=== PATIENT | female | born 1990 | race Caucasian/White ===

== ENCOUNTER 2024-05-21 23:03 | Emergency (ER) | payer OTHER, SELFPAY ==
[2024-05-21 23:06] VITALS: BP 114/79
--- NOTE | 2024-05-22 00:12 | ED.GENMED ---
History of Present Illness
General
Chief Complaint: Skin Problem
Source: patient
Exam Limitations: none
Time Seen by Provider: 05/22/24 00:08
History of Present Illness
History of Present Illness:
33yo right hand dominant female presenting for evaluation of a left index finger injury that was sustained this afternoon. 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 She
was able to remove the nail entirely prior to arrival. She is presenting with some discomfort. No fevers or chills. Last tetanus was reportedly 6 years ago.
Phy Exam
General Physical Exam
General Presentation: well appearing and no apparent distress
General age: appears stated age
General Skin: warm and dry
General Habitus: normal
ENT Exam
ENT Exam: normocephalic
Musculoskeletal Exam
Musculoskeletal Exam: other (L index finger: There is a small puncture wound noted laterally that is already scabbed over. There is mild swelling and tenderness to the distal digit. DIP and PIP ROM normal. Cap refill intact.)
Skin Exam
Skin Exam: warm/dry
Psychiatric Exam
Psychiatric Exam: normal mood/affect
Course
Orders/Labs/Results
Orders:
Orders
05/21/24 23:20
Finger(s)/Thumb 2 View Lt [CR Finger(s)/thumb Min 2 Vw Lt] Urgent
Comment:
Reason For Exam: shot tip with a nail gun
Indicate Which Finger:: Index Finger
05/22/24 00:17
Clindamycin HCl [Cleocin] 300 mg PO NOW STA
Vital Signs
Initial and Last Documented VS:
Initial Vital Signs
Temp Pulse Resp BP Pulse Ox
98.0 F 86 14 114/79 100
05/21/24 23:06 05/21/24 23:06 05/21/24 23:06 05/21/24 23:06 05/21/24 23:06
Last Documented Vital Signs
Temp Pulse Resp BP Pulse Ox
98.0 F 86 14 114/79 100
05/21/24 23:06 05/21/24 23:06 05/21/24 23:06 05/21/24 23:06 05/21/24 23:06
MDM/Problems Addressed
Differential Diagnosis Includes:
33yoF here after a nail gun injury to her L index finger this afternoon. 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 Small puncture wound noted to distal finger with some tenderness. ROM normal. Digit is neurovascularly intact. Differential diagnosis includes: retained
foreign body, fracture
X-rays obtained which are negative for fracture and FB per my interpretation. Tetanus UTD. She was started on a course of clindamycin (anaphylactic allergy to PCN) for infection prophylaxis. Advised return to the ED with any signs of infection or
concerns. Patient in agreement with plan and was discharged in stable condition.
*Critical Care Note
Total Time (30-74mins, 75-104mins- exclusive of procedures): Not Applicable
ED Attending Note
-
Portions of this chart may have been created with voice recognition software.� Occasional wrong word or��sound alike� substitutions may have occurred due to the inherent limitations of voice recognition software.
Discharge Plan
Departure
Patient Disposition: Home (Routine Discharge)
Date of Disposition: 05/22/24
Time of Disposition: 00:18
Patient with high blood pressure during this ER visit?: No
Discharge Problem:
Injury of finger of left hand by nail gun
Instructions: Puncture Wound
Prescriptions:
New
clindamycin HCl 300 mg capsule
300 mg PO TID 7 Days Qty: 20 0RF
Referrals:
Phuc Ontiveors MD [Active] -
Rogelio Moore MD [Family Provider] -
Activity Restrictions/Additional Instructions:
Take antibiotics as prescribed. Watch area closely and return to the ER with any signs of infection.
Interventions
Interventions:
*Risk Screen - Suicide Last Done: 05/21/24 23:06
*General Assessment Last Done: 05/22/24 00:29
*Neglect/Abuse Screening Last Done: 05/22/24 00:29
*ED- Fall Risk Assessment Last Done: 05/22/24 00:29
*ED COVID-19 Vaccine History Last Done: 05/22/24 00:29
*Nursing Disposition Last Done: 05/22/24 00:29
ED-Skin Assessment Last Done: 05/22/24 00:29
Discharge Date and Time
Discharge Date/Time: 05/22/24 00:32
Print Language: ARABIC
[2024-05-22] MEDS: CLEOCIN 300 MG PO (00:26)
== END 2024-05-22 00:32 | disposition home or self-care (01) ==
LOC: EMR 23:03
PROVIDERS: EMERGENCY PHYSICIAN Student in an Organized Health Care Education/Training Program; FAMILY PHYSICIAN Internal Medicine
DX: S61.231A Puncture wound without foreign body of left index finger without damage to nail, initial encounter (principal); W29.4XXA Contact with nail gun, initial encounter
CPT/HCPCS: 99282; 73140